=== PATIENT | male | born 1985 | race Two or more races ===

== ENCOUNTER 2022-12-09 21:26 | Emergency (ER) | payer SELFPAY ==
[2022-12-09] VITALS (13 sets, daily range): BP systolic 116–143; BP diastolic 72–87; PULSE 79–89; RESP 18; O2SAT 95–98; BMI 14.5
--- NOTE | 2022-12-09 22:10 | ED.HA ---
HPI - Headache General Time Seen by Provider: 22:10 Date Seen: 12/09/22 Chief Complaint: Headache/Migraine Stated Complaint: fainted, headache Time Seen by Provider: 12/09/22 22:10 Source: patient and RN notes reviewed Mode of arrival: ambulatory Limitations: no limitations History of Present Illness HPI Narrative: Patient is a 37-year-old male accompanied by his nephew and seen with the aid of the thermodynamic physicist coming in with complaint of a headache. He states his whole head hurts. It is not the worst headache of his life. This started after he was eating, felt suddenly dizzy like he was spinning. He is complaining that his right ear has ringing in it. He is no longer feeling dizzy or spinning. He states he does not feel well though. Denies nausea. No visual changes, no double vision or blurry vision. He did not drive himself. There has been no trauma. He has had no fevers chills, states he was feeling fine before this. He has not had an episode like this before. Patient denies any chronic medications, did take 2 pain pills which were [id number] prior to coming in. Unclear if it was Tylenol or an NSAID. Related Data Home Medications Medication Instructions Recorded Confirmed No Known Home Medications 12/09/22 12/09/22 Allergies Allergy/AdvReac Type Severity Reaction Status Date / Time No Known Drug Allergies Allergy Verified 12/09/22 21:35 Review of Systems Status of ROS: Reports: 6 or more systems reviewed and unremarkable except as noted in History and below PFSH PFS Social History Smoking Status: Former smoker Do you use any of these nicotine containing products: None Second hand tobacco smoke exposure: No How often do you have a drink containing alcohol: never AUDIT-C Alcohol total score: 0 Non-prescribed substance use: denies use Exam Const: Vital Signs, click to edit/add: Vital Signs - 24 hr 12/09/22 21:31 12/09/22 22:10 12/09/22 22:15 Pulse Rate 79 82 Pulse Rate [Pulse Oximeter] 83 Respiratory Rate 18 Blood Pressure Blood Pressure [Ri ght Upper Arm] 143/87 H Pulse Oximetry 98 98 97 Oxygen Delivery Me thod Room Air 12/09/22 22:30 12/09/22 22:31 12/09/22 22:32 Pulse Rate 84 85 82 Pulse Rate [Pulse Oximeter] Respiratory Rate Blood Pressure 116/75 Blood Pressure [Ri ght Upper Arm] Pulse Oximetry 97 95 97 Oxygen Delivery Me thod 12/09/22 22:51 12/09/22 23:00 12/09/22 23:02 Pulse Rate 89 84 82 Pulse Rate [Pulse Oximeter] Respiratory Rate Blood Pressure 119/72 Blood Pressure [Ri ght Upper Arm] Pulse Oximetry 97 96 95 Oxygen Delivery Me thod 12/09/22 23:15 Pulse Rate 82 Pulse Rate [Pulse Oximeter] Respiratory Rate Blood Pressure Blood Pressure [Ri ght Upper Arm] Pulse Oximetry 95 Oxygen Delivery Me thod Documenting provider has reviewed patient's vital signs: yes Common normals: no apparent distress, average body habitus, oriented x3, no limitations, healthy appearing and alert General appearance: cooperative, comfortable, well kempt and well developed HENMT: Common normals: normocephalic, head/scalp atraumatic, external ears normal, external nose normal, nasal mucous membranes and turbinates normal, moist oral mucous membranes, oropharynx normal, dentition normal and gingiva normal Head and scalp: normocephalic and atraumatic Face and sinus: normal facial exam Nose: external nose normal and nasal mucous membranes and turbinates normal External ear: external ears normal Other: Has wax occluding the left ear canal, right canal is normal, does have some scarring on the right tympanic membrane but tympanic membrane is translucent. He states finger rub by the right ear is fuzzy sound in comparison to his left which is the 1 that actually has a cerumen impaction. Eye: Common normals: PERRL, EOMs intact bilaterally, conjunctivae normal and no scleral icterus Conjunctiva: conjunctiva(e) normal Pupil: PERRL Neck & C-Spine: Common normals: full ROM, no lymphadenopathy, supple, no meningeal signs, no JVD and thyroid normal Thyroid: thyroid normal Resp: Common normals: normal respiratory effort, no retractions, no use of accessory muscles and clear to auscultation bilaterally Effort & inspection: able to speak in complete sentences Auscultation: clear to auscultation bilaterally Cardio: Common normals: no JVD, regular rate, regular rhythm, S1 normal heart sound, S2 normal heart sound, no gallops, no clicks and no murmurs Rate: regular rate Rhythm: regular rhythm Heart sounds: S1 normal and S2 normal GI: Common normals: Normal to inspection, nondistended, normoactive bowel sounds present, soft to palpation, non-tender, no hepatosplenomegaly and no masses Palpation: soft and no hepatosplenomegaly Extremity: Common normals: no calf tenderness and no pedal edema Neuro: [employer] Coma Scale: document GCS findings Shelley coma scale eye opening: Spontaneous (4) [employer] coma scale verbal response: Orientated (5) Shelley coma scale motor response: Obey commands (6) Shelley coma scale total score: 15 Common normals: oriented x3, CN's II-XII intact bilaterally (No nystagmus at this time), moves all extremities, no focal motor deficits, no sensory deficits noted and gait normal Sensorium/orientation: alert Meningeal signs: no meningeal signs Psych: Appearance: well kempt Course Course Hospital Course: Patient is presenting with a global headache with right tinnitus. Prior to this sounds if he actually had vertigo. This could be Meniere's type presentation although headache is not typical but is not excluded with min years. Will do head CT to rule out other intracranial pathology. Will start an IV, get basic blood work. We will give him a L of normal saline, 15 mg IV Toradol and 0.5 mg IV Ativan to see if this helps with his symptoms. Reevaluation(s) Time of Reevaluation #1: 00:20 Reevaluation #1: Patient is feeling better. Headache is improved, ear symptoms improved, no vertiginous symptoms. Reviewed labs and head CT. Vital Signs Vital signs: Initial Vital Signs Temperature Source Temporal Artery Scan 12/09/22 21:31 Pulse Rate 83 12/09/22 21:31 Respiratory Rate 18 12/09/22 21:31 Blood Pressure 143/87 H 12/09/22 21:31 Blood Pressure Mean 105 12/09/22 21:31 Blood Pressure Position Supine 12/09/22 21:31 Pulse Oximetry 98 12/09/22 21:31 Oxygen Delivery Method Room Air 12/09/22 21:31 Vital Signs Pulse Rate 83 12/09/22 21:31 Respiratory Rate 18 12/09/22 21:31 Blood Pressure 143/87 H 12/09/22 21:31 Pulse Oximetry 98 12/09/22 21:31 Oxygen Delivery Method Room Air 12/09/22 21:31 Pulse Rate 82 12/09/22 23:15 Respiratory Rate 18 12/09/22 21:31 Blood Pressure 119/72 12/09/22 23:02 Pulse Oximetry 95 12/09/22 23:15 Oxygen Delivery Method Room Air 12/09/22 21:31 MDM - Headache Lab Data Attestation: I reviewed the patient's lab results. Labs: Lab Results 12/09/22 Range/Units 22:20 WBC 6.79 (4.50-11.00) K/uL RBC 5.15 (4.30-5.90) m/uL Hgb 15.0 (13.5-17.5) gm/dL Hct 43.6 (37.0-53.0) % MCV 85 (80-100) fL MCH 29 (26-34) pg MCHC 34 (32-36) gm/dL RDW Coeff of Sandra 12.0 (11.5-15.5) % Plt Count 175 (140-440) K/uL Neut % (Auto) 69.4 (42.0-72.0) % Lymph % (Auto) 18.7 L (20-44) % Piute % (Auto) 8.4 (0.0-11.0) % Eos % (Auto) 1.9 (0.0-7.0) % Baso % (Auto) 0.6 (0.0-3.0) % Neut # (Auto) 4.71 (1.7-7.0) K/uL Lymph # (Auto) 1.30 (0.90-2.90) K/uL [place] # (Auto) 0.60 (0.00-0.90) K/UL Eos # (Auto) 0.13 (0.00-0.50) K/uL Baso # (Auto) 0.04 (0.00-0.30) K/uL Abs Immat Gran (auto) 0.07 (0.00-0.30) K/uL Imm/Tot Granulo (auto) 1.0 % Sodium 136 (135-149) mmol/L Potassium 3.5 L (3.6-5.1) mmol/L Chloride 103 (96-114) mmol/L Carbon Dioxide 25 (20-32) mmol/L BUN 13 (5-24) mg/dL Creatinine 0.8 (0.5-1.5) mg/dL Estimated Creat Clear 73.00 Estimated GFR 117 ml/min Glucose 136 H (60-115) mg/dL Lactate 0.8 (0.5-1.9) mmol/L Calcium 8.8 (8.4-10.6) mg/dL Total Bilirubin 0.5 (0.1-1.5) mg/dL AST 25 (12-35) U/L ALT 25 (4-50) U/L Alkaline Phosphatase 80 (40-150) U/L C-Reactive Protein < 0.5 L (0.5-1.0) mg/dL Total Protein 7.3 (6.0-8.3) g/dL Albumin 4.3 (3.3-5.0) g/dL Imaging Data CT scan - head: Attestation: I have reviewed the pertinent imaging results. Radiologist's impression: Patient: SUZAN KERN Facility:?[facility] Patient ID:?[id number] Site Patient ID:?[id number]. Site :?[id number] Study:?CT Head w/o Contrast-12/09/2022 10:55:40 PM Ordering Physician:Alda Blanco Final Report: INDICATION: HEADACHE, VERTIGO TECHNIQUE: CT head without i.v. contrast. COMPARISON: None FINDINGS: CSF spaces: Within normal limits for age. Brain parenchyma: The brain parenchyma is normal in appearance with preservation of the bello-white differentiation. No sign of mass, hemorrhage, or midline shift seen. Skull base and calvarium: The visualized paranasal sinuses are well aerated. The mastoid air cells are clear. The visualized orbits are grossly unremarkable. No skull fractures are seen. IMPRESSION: 1. No evidence of acute infarction, intracranial hemorrhage, or mass effect seen. Dictated by Tommy Milan MD @ 12/10/2022 12:10:35 AM Please note that all CT scans at this facility use dose modulation, iterative reconstruction, and/or weight-based dosing when appropriate to reduce radiation dose to as low as reasonably achievable. Dictated by: Tommy Milan MD @ 12/10/2022 00:10:42 (Electronic Signature) ECG Data Attestation: I personally reviewed and interpreted this ECG as follows: (Nursing staff collected EKG on arrival, shows normal sinus rhythm, 77 beats per minute, no acute pathology.) ECG interpretation date: 12/09/22 ECG interpretation time: 23:09 Discharge Plan Discharge Clinical Impression: Headache, Tinnitus Patient Disposition: Home, Self-Care Condition: Stable Instructions: Tinnitus (ED), General Headache (ED) Additional Instructions: Recommend going home and resting, drink adequate fluids. If you have any residual headache, can take some Tylenol or ibuprofen, follow bottle directions for dosing. If you start to experience further headaches, further episodes of spinning or vertigo, have increased issues with any hearing loss out of the right ear or increasing tinnitus/ringing of the ear, do need to seek further evaluation in the clinic, may need to be referred to ENT if there are further issues of the tinnitus associated with vertigo or hearing loss. Activity Level: Activity as Tolerated Prescriptions: No Action No Known Home Medications Stand Alone Forms: [employer] Info Instructions
--- NOTE | 2022-12-09 22:26 | CRLHL7_ITS ---
For Patients: As a result of the Century Cures Act, medical imaging exams and procedure reports are released immediately into your electronic medical record. You may view this report before your referring provider. If you have questions, please contact your health care provider. INDICATION: HEADACHE, VERTIGO TECHNIQUE: CT head without i.v. contrast. COMPARISON: None FINDINGS: CSF spaces: Within normal limits for age. Brain parenchyma: The brain parenchyma is normal in appearance with preservation of the bello-white differentiation. No sign of mass, hemorrhage, or midline shift seen. Skull base and calvarium: The visualized paranasal sinuses are well aerated. The mastoid air cells are clear. The visualized orbits are grossly unremarkable. No skull fractures are seen. IMPRESSION: 1. No evidence of acute infarction, intracranial hemorrhage, or mass effect seen. Dictated by Tommy Milan MD @ 12/10/2022 12:10:35 AM Please note that all CT scans at this facility use dose modulation, iterative reconstruction, and/or weight-based dosing when appropriate to reduce radiation dose to as low as reasonably achievable. Dictated by: Tommy Milan MD @ 12/10/2022 00:10:42 (Electronically Signed)
[2022-12-09 22:29] LABS: Lactate* 0.8 mmol/L (0.5-1.9)
[2022-12-09] MEDS: LORazepam 2 MG/ML inj 0.5 MG IVP (22:33)
[2022-12-09] MEDS: KETOROLAC 15 MG/ML inj IVP (22:34)
[2022-12-09] MEDS: 0.9 % SODIUM CHLORIDE 1000 ml 1,000 ML IV (22:34)
[2022-12-09 23:00] LABS: Basophils Absolute Auto 0.04 K/uL (0.00-0.30); Basophils Percent Auto 0.6 % (0.0-3.0); Eosinophils Absolute Auto 0.13 K/uL (0.00-0.50); Eosinophils Percent Auto 1.9 % (0.0-7.0); Hematocrit 43.6 % (37.0-53.0); Immature Granulocytes Abs Auto 0.07 K/uL (0.00-0.30); Lymphocytes Percent Auto 18.7 % (20-44); Mean Corpuscular HGB Conc 34 gm/dL (32-36); Mean Corpuscular Hemoglobin 29 pg (26-34); Mean Corpuscular Volume 85 fL (80-100); Monocytes Percent Auto 8.4 % (0.0-11.0); Neutrophils Absolute Auto 4.71 K/uL (1.7-7.0); Neutrophils Percent Auto 69.4 % (42.0-72.0); Platelet Count* 175 K/uL (140-440); Red Blood Count 5.15 m/uL (4.30-5.90); White Blood Count* 6.79 K/uL (4.50-11.00)
[2022-12-09 23:03] LABS: Slide Review Reflex No
[2022-12-09 23:11] LABS: Albumin* 4.3 g/dL (3.3-5.0); Aspartate Amino Transferase* 25 U/L (12-35); Bilirubin Total* 0.5 mg/dL (0.1-1.5); Blood Urea Nitrogen* 13 mg/dL (5-24); Calcium* 8.8 mg/dL (8.4-10.6); Carbon Dioxide* 25 mmol/L (20-32); Chloride* 103 mmol/L (96-114); Creatinine* 0.8 mg/dL (0.5-1.5); Estimated Glomerular Filt Rate 117 ml/min; Glucose* 136 mg/dL (60-115); Potassium* 3.5 mmol/L (3.6-5.1); Sodium* 136 mmol/L (135-149); Total Protein* 7.3 g/dL (6.0-8.3)
[2022-12-09 23:12] LABS: Alanine Aminotransferase* 25 U/L (4-50); Alkaline Phosphatase* 80 U/L (40-150); C Reactive Protein* < 0.5 mg/dL (0.5-1.0)
[2022-12-10] VITALS (7 sets, daily range): BP systolic 120–127; BP diastolic 81–86; PULSE 75–86; O2SAT 95–98
== END 2022-12-10 00:52 | disposition home or self-care (01) ==
PROVIDERS: Emergency Provider Family Medicine
DX: R51.9 Headache, unspecified (principal); H93.11 Tinnitus, right ear
CPT/HCPCS: 36415; 70450; 80053; 83605; 85025; 86140; 96374; 96375; 99284; J1885; J2060; J7030